=== PATIENT | female | born 1975 | race Two or more races ===

== ENCOUNTER 2023-10-07 16:16 | Emergency (ER) | payer OTHER ==
[~2023-10-07] VITALS: Ht 157.5 cm; Wt 65.0 kg
[2023-10-07 16:19] VITALS: O2SAT 99
[2023-10-07] MEDS ORDERED: IBUP-1523 MT (19:51)
[2023-10-07] MEDS ORDERED: DIPH-1091 MT (19:51)
[2023-10-07] MEDS ORDERED: AZIT250T12 MT (19:51)
[2023-10-07] MEDS ORDERED: TOPUD MT (19:51)
[2023-10-07] MEDS: ACETAMINOPHEN 325MG TABLET PO ONE (19:59)
[2023-10-07] MEDS: ONDANSETRON 4MG ODT PO ONE (19:59)
[2023-10-07] MEDS: DIPHENOXYLATE/ATROPINE 2.5/0.025MG TABLET PO ONE (20:00)
[2023-10-07 20:03] VITALS: BP 119/74; PULSE 88; RESP 20; TEMP 38.50308; O2SAT 99
== END 2023-10-07 20:04 ==
LOC: ER 16:16
DX: K52.9 Noninfective gastroenteritis and colitis, unspecified (principal); Z79.899 Other long term (current) drug therapy; Z20.822 Contact with and (suspected) exposure to COVID-19
CPT/HCPCS: 99284; 71045; 87426; Q0162